=== PATIENT | female | born 1950 | race Caucasian/White ===

== ENCOUNTER 2019-08-16 15:12 | Outpatient (CLI) | payer MEDICARE, SELFPAY ==
[2019-08-16 15:45] LABS: Basophils Absolute Auto 0.1 K/mm3 (0.0-0.1); Basophils Percent Auto 0.9 % (0.2-1.2); Eosinophils Absolute Auto 0.3 K/mm3 (0-0.3); Eosinophils Percent Auto 5.8 % (0-4.4); Hematocrit 28.1 % (37.0-47.0); Hemoglobin 8.4 g/dL (12.0-15.0); Immature Granulocyte Absolute 0.04 K/mm3 (0.00-0.031); Immature Granulocyte Percent A 0.7 % (0-0.5); Immature Reticulocyte Fraction 20.3 % (3.0-15.9); Lymphocytes Absolute Auto 0.38 K/mm3 (0.9-3.2); Lymphocytes Percent Auto 6.5 % (18.3-44.2); Mean Corpuscular HGB Conc 29.9 g/dl (32-36); Mean Corpuscular Hemoglobin 26.3 pg (26-34); Mean Corpuscular Volume 88.1 fl (80-100); Mean Platelet Volume 9.4 fl (7.4-10.4); Monocytes Absolute Auto 0.7 K/mm3 (0.1-0.6); Monocytes Percent Auto 11.9 % (2.6-8.5); Neutrophils Absolute Auto 4.4 K/mm3 (1.3-6.7); Neutrophils Percent Auto 74.2 % (45.5-73.1); Platelet Count Result 159 k/mm3 (150-375); Red Blood Count 3.19 M/mm3 (4.2-5.4); Red Cell Distribution Width 15.2 % (11.5-14.5); Reticulocyte Hemoglobin Conten 27.2 pg (28.2-35.7); Reticulocyte Percent 3.62 % (0.7-4.3); Reticulocytes Absolute 0.12 B/L (32.2-175.7); White Blood Count 5.9 K/mm3 (4.5-10.0)
[2019-08-16 15:47] LABS: Hypochromasia 1+ (NORMAL); Platelet Estimate Adequate (Adequate)
[2019-08-16 16:46] LABS: Iron 41 ug/dL (37-170)
[2019-08-16 16:50] LABS: Alanine Aminotransferase 11 U/L (4-35); Albumin Level 3.4 g/dL (3.5-5.1); Alkaline Phosphatase 124 U/L (38-126); Aspartate Amino Transferase 20 U/L (14-36); Bilirubin,Total 0.4 mg/dL (0.2-1.3); Blood Urea Nitrogen 44 mg/dL (7-17); Calcium 8.9 mg/dL (8.4-10.2); Carbon Dioxide 25 mmol/L (22-30); Chloride 96 mmol/L (98-107); Estimated Glomerular Filt Rate 55; Glucose 270 mg/dL (65-105); Lactate Dehydrogenase 491 U/L (313-618); Potassium 4.8 mmol/L (3.4-5.0); Sodium 137 mmol/L (137-145)
[2019-08-16 16:55] LABS: Percent Iron Saturation 13 % (20-50)
[2019-08-16 17:55] LABS: Folic Acid 15.8 ng/mL (2.76->20)
[2019-08-19 14:14] LABS: Methylmalonic Acid 721 nmol/L (87-318)
== END 2019-08-16 15:13 | disposition home or self-care (01) ==
PROVIDERS: PCP Family Medicine; Visit Provider Internal Medicine Hematology & Oncology
DX: D64.9 Anemia, unspecified (principal)
CPT/HCPCS: 36415; 80053; 82607; 82728; 82746; 83540; 83550; 83615; 83921; 84443; 85025; 85046

== ENCOUNTER 2019-12-21 05:40 | Day surgery (SDC) | payer MEDICARE, SELFPAY ==
[2019-12-20 15:21] VITALS: BMI 36.6
--- NOTE | ~2019-12-21 | BM_ITS ---
EXAMINATION: CCL bone marrow asp w bx diag ORDER COMPLETED DATE: 12/21/2019 17:30 INDICATION: Anemia TECHNIQUE: A time-out was performed to verify the patient's name, date of , and procedure to b e performed. The procedure including the risks and benefits was discussed with the patient. Risks dis cussed included bleeding, infection, nerve injury and allergic reaction. The patient understood the r isks and agreed to proceed. The skin overlying the right posterior iliac spine was prepped and draped in usual sterile fashion. Anesthetic was administered with 1% lidocaine subcutaneously. Moderate co nscious sedation was achieved with 100 mcg fentanyl IV. An 11 gauge needle was inserted into the iliu m with fluoroscopic guidance. Bone marrow was aspirated. An 8 gauge needle was then inserted into the ilium with fluoroscopic guidance. A core bone marrow biopsy was obtained. The needle was removed and the entry site was cleaned and dressed. There were no immediate complications. 29 fluoroscopic imag es were recorded. Fluoroscopy exposure time was 0.1 minutes. FINDINGS: Real-time fluoroscopy demonstrates the biopsy needle tip overlying the right posterior bari c spine. IMPRESSION: 1. Successful fluoroscopic guided bone marrow aspiration. 2. Successful fluoroscopic guided bone marrow biopsy. Reviewed, dictated and finalized at location A.
[2019-12-21 08:26] LABS: Hematocrit 23.9 % (37.0-47.0); Mean Corpuscular HGB Conc 28.5 g/dl (32-36); Mean Corpuscular Hemoglobin 25.3 pg (26-34); Mean Corpuscular Volume 88.8 fl (80-100); Mean Platelet Volume 9.8 fl (7.4-10.4); Platelet Count Result 134 k/mm3 (150-375); Red Blood Count 2.69 M/mm3 (4.2-5.4); Red Cell Distribution Width 17.1 % (11.5-14.5); White Blood Count 5.3 K/mm3 (4.5-10.0)
[2019-12-21 08:29] LABS: Hemoglobin 6.8 g/dL (12.0-15.0)
[2019-12-21 08:30] VITALS: BP 162/82; PULSE 113; RESP 16; TEMP 37; O2SAT 97
[2019-12-21 09:16] LABS: Band Neutrophils Percent 1 % (0-6); Eosinophils Absolute Manual 0.05 K/mm3 (0.02-0.5); Eosinophils Percent Manual 1 % (0-4); Lymphocytes Absolute Manual 0.26 K/mm3 (1.1-4.5); Monocytes Absolute Manual 0.15 K/mm3 (0.1-0.90); Monocytes Percent Manual 3 % (3-9); Neutrophils Absolute Manual 4.82 K/mm3 (1.7-7.2); Neutrophils Percent Manual 90 % (46-73); Total Cells Counted 100
[2019-12-21 09:17] LABS: Hypochromasia 2+ (NORMAL)
[2019-12-21 10:03] VITALS: BP 112/94; PULSE 113; RESP 18; O2SAT 100
[2019-12-21 10:15] VITALS: BP 133/91; PULSE 113; RESP 23; O2SAT 99
[2019-12-21 10:30] VITALS: BP 126/89; PULSE 114; RESP 20; O2SAT 98
[2019-12-21 10:45] VITALS: BP 144/86; PULSE 114; RESP 19; O2SAT 97
[2019-12-21 11:00] VITALS: BP 145/79; PULSE 114; RESP 21; O2SAT 98
== END 2019-12-21 12:10 | disposition home or self-care (01) ==
PROVIDERS: Pathology Anatomic Pathology & Clinical Pathology; Visit Provider Radiology Diagnostic Radiology
DX: D64.9 Anemia, unspecified (principal); E11.9 Type 2 diabetes mellitus without complications; Z79.4 Long term (current) use of insulin; Z86.73 Personal history of transient ischemic attack (TIA), and cerebral infarction without residual deficits; Z79.02 Long term (current) use of antithrombotics/antiplatelets; Z79.82 Long term (current) use of aspirin
CPT/HCPCS: 36415; 38222; 85025; 85027; 88184; 88185; 88305; 88311; 88313; 88360; J2250; J3010; J7040

== ENCOUNTER 2020-01-23 20:50 | Inpatient (IN) | payer MEDICARE, SELFPAY ==
--- NOTE | ~2020-01-23 | XR_ITS ---
EXAMINATION: XR chest 1V portable DATE: 01/23/2020 21:16 INDICATION: Altered mental status. TECHNIQUE: A single frontal view of the chest was obtained. COMPARISON: Chest single view 08/17/2017, chest CT 09/18/2015 FINDINGS: The patient is rotated to her left. There are small pleural effusions. There are airspace o pacities in all right lung zones with a perihilar predominance. There are airspace opacities in left mid and lower lung zones. No pneumothorax. Cardiomegaly is noted. There is instrumentation of left hu merus. IMPRESSION: 1. Diffuse lung disease, consistent with pulmonary edema versus pneumonia. 2. Small pleural effusions. 3. Cardiomegaly. Reviewed, dictated and finalized at location A.
[2020-01-23 20:50] VITALS: BP 139/83; PULSE 91; RESP 17; TEMP 36.3; O2SAT 100
--- NOTE | 2020-01-23 20:59 | PC.NURSE ---
pt daughter requesting pt to have multiple visitors back in room at this time. rn explained to family that pt is only allowed one visitor for entire stay at this time per new visitor policy. daughter very upset with this answer, daughter continues to yell in triage at rn and other family member. weigh and charge worker alec called to talk to family at this time.
--- NOTE | 2020-01-23 21:06 | ED.GENADULT ---
HPI - General Adult General Chief complaint: Weakness Stated complaint: ams Time Seen by Provider: 01/23/20 20:57 History of Present Illness HPI narrative: Patient is a 69-year-old female who presents ER with unresponsiveness. Patient was found unresponsive at her home so EMS not to check on her. She is chronically O2 dependent with nasal cannula oxygen on. EMS reports that she had a normal Accu-Chek and had a brief moment of lucidity while in the ambulance. History is otherwise limited. Related Data Home Medications Medication Instructions Recorded Confirmed atorvastatin 10 mg PO DAILY 05/07/19 01/24/20 escitalopram oxalate [Lexapro] 20 mg PO DAILY 05/07/19 01/24/20 [id number] 150 ml PO DAILY 05/07/19 01/24/20 [Iro-Plex (iron polysaccharide)] sucralfate 1 g PO TID 05/07/19 01/24/20 aspirin 81 mg PO DAILY 12/21/19 01/24/20 buspirone 10 mg PO TID 12/21/19 01/24/20 clopidogrel [Plavix] 75 mg PO DAILY 12/21/19 01/24/20 cyanocobalamin (vitamin B-12) 1,000 mcg PO DAILY 12/21/19 01/24/20 [Vitamin B-12] hydralazine 15 mg PO TID 12/21/19 01/24/20 insulin glargine [Basaglar KwikPen 20 unit SUBCUT BID 12/21/19 01/24/20 U-100 Insulin] levothyroxine 100 mcg PO DAILY 12/21/19 01/24/20 sacubitril-valsartan [Entresto] 1 tablet PO BID 12/21/19 01/24/20 torsemide 10 mg PO QPM 12/21/19 01/24/20 torsemide 20 mg PO QAM 12/21/19 01/24/20 hydrocodone-acetaminophen 1 tablet PO Q6H PRN 01/24/20 01/24/20 insulin aspart U-100 [Novolog 1 sliding scale dose SUBCUT 01/24/20 01/24/20 U-100 Insulin aspart] USEASDIRECTD metoprolol tartrate 50 mg PO Q12H 01/24/20 01/24/20 potassium chloride 20 meq PO DAILY 01/24/20 01/24/20 torsemide 10 mg PO QNOON 01/24/20 01/24/20 Allergies Allergy/AdvReac Type Severity Reaction Status Date / Time amoxicillin Allergy Unknown Verified 06/03/15 16:55 cephalexin Allergy Unknown Verified 05/17/18 14:45 Cephalosporins Allergy Unknown Verified 06/03/15 16:55 epinephrine Allergy Unknown Verified 05/17/18 14:45 levofloxacin Allergy Unknown Verified 05/17/18 14:45 metronidazole Allergy Unknown Verified 06/03/15 16:55 nitrofurantoin Allergy Unknown Verified 06/03/15 16:55 sulfanilamide Allergy Unknown Verified 06/03/15 16:56 CEPHALEXIN MONOHYDRATE Allergy Mild Uncoded 08/17/17 17:31 POTASSIUM CLAVULANATE Allergy Mild Uncoded 08/17/17 17:31 Review of Systems Review of Systems: ROS unobtainable: Yes unobtainable due to medical condition PMFSH Social History Social History Smoking status: Never smoker Second hand tobacco smoke exposure: No Alcohol intake: never Substance use: never Gender identity (if verbalized by the patient): Female Spiritual care concerns: No Exam Narrative: Exam Narrative: GENERAL: Ill-appearing, well-nourished, and in no acute distress. HEAD: Normocephalic, atraumatic. ENT: Mucous membranes moist. CHEST: Clear to auscultation. No respiratory distress. HEART: Regular rate and rhythm. Normal peripheral pulses. ABDOMEN: Soft, nontender, nondistended. EXTREMITIES: Normal range of motion. 1+ edema. SKIN: Warm, dry, bruising to mid abdomen likely from subcutaneous heparin injections. NEURO: Wakes with light sternal rub, can tell me her name but no other information. Moves all extremities. PSYCH: Normal mood and affect. Course Course Emergency Course: Patient responding well to BiPAP. Lasix for diuresis. Vital Signs Vital signs: Vital Signs Temperature 97.4 F L 01/23/20 20:50 Pulse Rate 91 01/23/20 20:50 Respiratory Rate 17 01/23/20 20:50 Blood Pressure 139/83 01/23/20 20:50 Pulse Oximetry 100 01/23/20 20:50 Temperature 98.4 F 01/24/20 04:00 Pulse Rate 92 01/24/20 06:00 Respiratory Rate 20 01/24/20 04:00 Blood Pressure 106/82 01/24/20 04:00 Pulse Oximetry 100 01/24/20 04:00 Medical Decision Making Vital Signs Vital Signs: Vital Signs Temperature 97.4 F L 01/23/20 20:50 Pulse Rate 91 01/23/20 20
[2020-01-23 21:18] LABS: Basophils Percent Auto 0.5 % (0.2-1.2); Eosinophils Absolute Auto 0.2 K/mm3 (0-0.3); Eosinophils Percent Auto 2.8 % (0-4.4); Hematocrit 25.3 % (37.0-47.0); Hemoglobin 7.1 g/dL (12.0-15.0); Immature Granulocyte Absolute 0.02 K/mm3 (0.00-0.031); Immature Granulocyte Percent A 0.3 % (0-0.5); Lymphocytes Absolute Auto 0.33 K/mm3 (0.9-3.2); Lymphocytes Percent Auto 5.2 % (18.3-44.2); Mean Corpuscular HGB Conc 28.1 g/dl (32-36); Mean Corpuscular Hemoglobin 25.1 pg (26-34); Mean Corpuscular Volume 89.4 fl (80-100); Monocytes Absolute Auto 0.8 K/mm3 (0.1-0.6); Neutrophils Percent Auto 79.2 % (45.5-73.1); Platelet Count Result 135 k/mm3 (150-375); Red Blood Count 2.83 M/mm3 (4.2-5.4); Red Cell Distribution Width 17.3 % (11.5-14.5); White Blood Count 6.4 K/mm3 (4.5-10.0)
[2020-01-23 21:21] VITALS: PULSE 89
[2020-01-23 21:30] LABS: Lactic Acid Reflex 1.7 mmol/L (0.7-2.1)
[2020-01-23 21:43] LABS: Anisocytosis 2+ (NORMAL); Hypochromasia 1+ (NORMAL); Platelet Estimate Decreased (Adequate)
[2020-01-23 21:55] LABS: Base Excess ABG 5.8 mEq/l (+/-2.0); Carboxyhemoglobin 1.6 % THb (0-2.0); Fractional Inspired Oxygen 100 %; HCO3 ABG 33.1 mEq/l (22.0-26.0); Methemoglobin ABG 0.4 %THb (0-1.5); Oxyhemoglobin 97.4 % THb (90.0-100.0); Reduced Hemoglobin 0.6 %THb (0-5.0); pH ABG 7.301 (7.350-7.450)
[2020-01-23 21:56] LABS: Oxygen Saturation ABG 97.9 % (95.0-100.0); PCO2 ABG 68.7 mmHg (35.0-45.0); Total Hemoglobin 7.5 g/dL (12.0-18.0)
[2020-01-23 21:57] LABS: Device NON-REBREATHER MASK; Site Drawn RIGHT BRACHIAL
--- NOTE | 2020-01-23 21:59 | PCRCNOTE ---
ABG RESULTS DELAYED DUE TO RN CARE OF PT AND OTHER TESTING.
[2020-01-23 22:04] VITALS: PULSE 87; RESP 20; O2SAT 97
[2020-01-23 22:15] LABS: INR 1.4; Prothrombin Time 16.4 Seconds (11.1-14.7)
[2020-01-23 22:25] LABS: Blood Urea Nitrogen 78 mg/dL (7-17); Carbon Dioxide 34 mmol/L (22-30); Chloride 100 mmol/L (98-107); Estimated CRCL calculation 35 ml/min; Estimated Glomerular Filt Rate 32; Glucose 120 mg/dL (65-105); Potassium 4.8 mmol/L (3.4-5.0); Sodium 138 mmol/L (137-145)
[2020-01-23 22:26] LABS: NT Pro B Type Natriuretic Pept 7610 PG/ML (5-100)
--- NOTE | 2020-01-23 22:39 | PC.NURSE ---
Pt has areas of reddened, weeping moisture related skin breakdown in her panus and groin.
[2020-01-23 22:41] VITALS: BP 124/67; PULSE 85; RESP 24; O2SAT 100
[2020-01-23 23:14] LABS: Add Urine Microscopic? YES; Appearance Urine Clear (Clear); Bacteria Urine Trace /hpf; Bilirubin Urine Negative (Negative); Blood Urine Negative (Negative); Color Urine Yellow (Yellow); Glucose Urine UA Negative (Negative); Hyaline Casts Urine 30-49 /lpf; Ketones Urine Negative (Negative); Leukocyte Esterase Ur Negative LEU/UL (Negative); Mucus Urine Rare /lpf; Nitrate Urine Negative (Negative); Protein Urine 1+ mg/dL (Negative); Specific Grav Ur 1.017 (1.001-1.035); Urobilinogen Urine Negative mg/dL (<2.0)
[2020-01-23 23:23] VITALS: BP 119/67; PULSE 86; RESP 19; O2SAT 94
--- NOTE | 2020-01-23 23:32 | PC.NURSE ---
report taken from adrian hernandez at this time.
[2020-01-23] MEDS: FUROSEMIDE INJ 40 MG/4 ML VIAL IV PUSH (23:46)
[2020-01-24] VITALS (26 sets, daily range): BP systolic 98–128; BP diastolic 46–84; PULSE 75–111; RESP 16–22; TEMP 36.1–36.9; O2SAT 97–100; BMI 47.2; BMI 47.0
--- NOTE | 2020-01-24 | ECHO_ITS ---
Patient Info Name: Regi Khan Age: 69 years : 1950 Gender: Female Ht: 62 in Wt: 257 lbs BSA: 2.33 m2 HR: 92 bpm BP: 106 / 82 mmHg Heart Rhythm: Indeterminant Technical Quality: Good Exam Date: 01/24/2020 11:15 AM Exam Location: [facility] Pulmonary Exam Room: 203 Patient Status: Inpatient Admit Date: 01/24/2020 Staff Ordering Physician: Izabella Heredia DO Staff Software Engineer: Stefanie Sandoval RDCS Attending Provider: Nic Banks PA-C Referring Physician: Giovanna SIMON; Exam Type: CA echo doppler color flow Study Info Indications - RESP FAILURE EDEMA Complete two-dimensional, color flow and Doppler transthoracic echocardiogram is performed. Summary 1. Left ventricular chamber size, and systolic are normal with no regional wall motion abnormalities with an estimated ejection fraction of 60-65%. There is grade 1 diastolic dysfunction noted. Mild concentric left ventricular hypertrophy is present. 2. Right ventricular chamber dimension is severely enlarged with a moderate reduction of systolic function. There is flattening of the interventricular septum during diastole consistent with volume overload. 3. Left atrial chamber dimension is moderately enlarged. 4. Right atrial chamber dimension is severely enlarged. 5. The mitral valve has thickened leaflets with mild regurgitation. 6. There is severe tricuspid valve regurgitation. 7. Moderate pulmonary hypertension, estimated pulmonary arterial systolic pressure is 57 mmHg. 8. Moderate left pleural effusion. 9. Dilated inferior vena cava with <50% collapse upon inspiration consistent with Empty right atrial pressure, 10 mmHg. Left Ventricle Left ventricular chamber dimension is normal. Left ventricular systolic function is normal, estimated at 60-65%. There is no increased left ventricular wall thickness. Left ventricular septal wall motion is normal. The left ventricular diastolic function is grade I diastolic dysfunction. Left ventricular chamber size, and systolic are normal with no regional wall motion abnormalities with an estimated ejection fraction of 60-65%. There is grade 1 diastolic dysfunction noted. Mild concentric left ventricular hypertrophy is present. Left ventricular Empty are normal with no regional wall motion abnormalities with an estimated ejection fraction of Empty. Right Ventricle Right ventricular chamber dimension is severely enlarged with a moderate reduction of systolic function. There is flattening of the interventricular septum during diastole consistent with volume overload. Right ventricular systolic function is reduced. Left Atria Left atrial chamber dimension is moderately enlarged. Right Atria Right atrial chamber dimension is severely enlarged. Aortic Valve The aortic valve is trileaflet. There is no aortic valve sclerosis. There is no aortic valve stenosis. There is no aortic valve regurgitation. There is mild aortic valve calcification. Pulmonic Valve The pulmonic valve is normal. There is no pulmonic valve stenosis. There is no pulmonic regurgitation. Mitral Valve The mitral valve has thickened leaflets with mild regurgitation. There is no mitral valve stenosis. There is mild mitral valve regurgitation. There is moderate mitral valve calcification. Tricuspid Valve The tricuspid valve leaflets are normal. There is no significant tricuspid valve stenosis. There is severe tricuspid valve regurgitation. Moderate pulmonary hypertension, estimated pulmonary arterial s
--- NOTE | 2020-01-24 01:30 | ADMGEN ---
This patient, Regi Khan, was admitted to IMU Room 203-01. Patient/family oriented to hospital policies and general routines including ID bracelet, bed and alarms, visiting hours, pain management, procedures, bathroom and other care routines, personal items, smoking policy, room service/diet, and visiting hours. Valuables list has been completed. Information on how to activate the Rapid Response Team has been discussed. Patient/Family are encouraged to report perceived risks to care and to ask questions if they do not understand what they are told or what they should do. 0100 01/24/20
[2020-01-24 05:01] LABS: Alveolar/Arterial O2 Gradient 74.5 mmHg; Base Excess ABG 4.4 mEq/l (+/-2.0); Carboxyhemoglobin 0.8 % THb (0-2.0); Fractional Inspired Oxygen 32 %; HCO3 ABG 27.9 mEq/l (22.0-26.0); Methemoglobin ABG 0.3 %THb (0-1.5); Oxygen Content ABG 10.3 %vol (16.0-22.0); Oxygen Saturation ABG 98.4 % (95.0-100.0); Oxyhemoglobin 96.9 % THb (90.0-100.0); PCO2 ABG 36.4 mmHg (35.0-45.0); PO2 ABG 111.1 mmHg (80.0-100.0); PO2 FiO2 Ratio Arterial Blood 3.47 %; pH ABG 7.502 (7.350-7.450)
[2020-01-24 05:04] LABS: Device NON-INVASIVE VENT; Modified Allen's Test Pass; Site Drawn RIGHT RADIAL; Total Hemoglobin 7.4 g/dL (12.0-18.0)
[2020-01-24 05:05] LABS: Non-Invasive Expiratory Pressure 8 CMH2O; Non-Invasive Inspiratory Pressure 16 CMH2O; Non-Invasive Vent Rate 10 /MIN
[2020-01-24] MEDS: FUROSEMIDE INJ 40 MG/4 ML VIAL IV PUSH ×2 (05:23→18:16)
[2020-01-24 05:34] LABS: Mean Corpuscular HGB Conc 27.8 g/dl (32-36); Mean Corpuscular Hemoglobin 24.4 pg (26-34); Mean Corpuscular Volume 87.8 fl (80-100); Platelet Count Result 114 k/mm3 (150-375); Red Blood Count 2.62 M/mm3 (4.2-5.4); White Blood Count 6.6 K/mm3 (4.5-10.0)
[2020-01-24 05:40] LABS: Hemoglobin 6.4 g/dL (12.0-15.0)
[2020-01-24 05:46] LABS: Blood Urea Nitrogen 77 mg/dL (7-17); Calcium 8.3 mg/dL (8.4-10.2); Carbon Dioxide 34 mmol/L (22-30); Chloride 98 mmol/L (98-107); Estimated CRCL calculation 33 ml/min; Estimated Glomerular Filt Rate 30; Glucose 80 mg/dL (65-105); Potassium 4.9 mmol/L (3.4-5.0); Sodium 137 mmol/L (137-145)
--- NOTE | 2020-01-24 06:52 | PM.IMHP ---
H&P: HPI History of Present Illness Chief complaint: Unresponsive Narrative: Date and time of patient contact: 01/24/2020 at 6:00 a.m. Regi Khan is a 69 year old female with a past medical history diastolic dysfunction, hypertension, myelodysplastic syndrome, type 2 diabetes mellitus, morbid obesity, chronic hypoxic respiratory failure and multiple strokes who presented to the ER when she was found unresponsive by her . The patient is only a fair to poor historian. She does not know why she was brought into the ER. She stated that she must of been short of breath. However when I asked if the patient had been feeling ill or having increased shortness of breath prior to coming to the ER she denied the symptoms. She does report chronic knee and leg pain in his requesting narcotic medications. She denies any chest pain. She is on chronic home O2 of 5 L at home. She has not been having any cough or congestion. 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 She has functional quadriplegia in her has to lift her with a Maame lift to get her from bed to wheelchair. He is responsible for her bathing and daily care. They have a home health aide that comes in twice a day to make the meals. Patient denies any nausea or vomiting. She has not had any fevers or chills. She has terrible rashes in her folds that her painful. When EMS arrived at the patient's home she had a normal Accu-Chek. She had a brief period of lucidity while in the ambulance. When the patient arrived to the ER she was minimally responsive. ABG at that time demonstrated hypercapnic respiratory failure. The patient was placed on BiPAP. The reportedly by the time the patient arrived to the IMU she was awake and conversant. At the time of my interview the patient has difficulty answering a lot of questions. She can't tell me the year but does not know the month. She knows her age and date of . She cannot name the president. When asked specific questions regarding her health history she can only provide limited answers. Source of information: The majority of the history was provided from past medical history. Patient is poor historian. Review of Systems Review of Systems: Narrative: 12 systems were reviewed with pertinent positives and negatives per HPI. Except as documented in the HPI, all other systems were reviewed and are negative. [facility]LY [facility] Past Medical History Medical History (Updated 01/24/20 @ 09:48 by Izabella Heredia DO) Chronic pain syndrome Chronic respiratory failure with hypoxia, on home O2 therapy CVA (cerebral vascular accident) Right occipital stroke with mild left-sided weakness and peripheral vision loss Diabetes mellitus Diabetic gastroparesis Essential hypertension Functional quadriplegia GERD (gastroesophageal reflux disease) Hyperlipidemia MDS (myelodysplastic syndrome), low grade Noted on bone marrow biopsy December 2019 Morbid obesity Peripheral neuropathy Surgical History Surgical History (Updated 01/24/20 @ 09:22 by Izabella Heredia DO) Ankle fracture, right With ORIF H/O hysterectomy for benign disease Dysfunctional uterine bleeding History of appendectomy History of bilateral cataract extraction History of inguinal hernia repair, bilateral History of left breast biopsy With benign pathology History of partial thyroidectomy Due to cyst History of shoulder surgery Left shoulder ORIF Hx of cholecystectomy Family History Family History (Updated 01/24/20 @ 09:28 by Izabella Heredia DO) Sibling Multiple sclerosis Sister Father Diabetes mellitus Hyperlipidemia Malignant neoplasm of prostate Heart disease Acute myocardial infarction Mother Diabetes mellitus Emphysema lung Social History Social History (Updated 01/24/20 @ 09:29 by Izabella Heredia DO) Smoking status: Never smoker Second hand tobacco smoke exposure: No Alcohol intake: never Substance use: never Living [facility]
[2020-01-24] MEDS: SUCRALFATE 1 GM TABLET PO ×3 (09:52→18:14)
[2020-01-24] MEDS: ATORVASTATIN 10 MG TABLET PO (09:52)
[2020-01-24] MEDS: ASPIRIN 81 MG CHEWABLE TABLET PO (09:53)
[2020-01-24] MEDS: CYANOCOBALAMIN 1,000 MCG TABLET 1000 MCG PO (09:53)
[2020-01-24] MEDS: METOPROLOL TARTRATE 50 MG TAB PO ×2 (09:53→21:38)
[2020-01-24] MEDS: POTASSIUM CHLORIDE 20 MEQ TABLET.ER PO (09:53)
[2020-01-24] MEDS: ESCITALOPRAM OXALATE 10 MG TABLET 20 MG PO (09:54)
[2020-01-24] MEDS: busPIRone HCL 10 MG TABLET PO ×3 (09:54→18:14)
[2020-01-24] MEDS: CLOPIDOGREL BISULFATE 75 MG TABLET PO (09:55)
[2020-01-24] MEDS: LEVOTHYROXINE SODIUM 100 MCG TABLET PO (10:03)
[2020-01-24 10:09] LABS: Glucose Point of Care 159 (65-105)
[2020-01-24 13:55] LABS: Glucose Point of Care 142 (65-105)
[2020-01-24] MEDS: TUBING, BLOOD PLUM PUMP TUBING 1 EACH XX (15:10)
[2020-01-24] MEDS: SODIUM CHLORIDE 0.9% IV 250 ML 30 ML IV CONT (15:10)
[2020-01-24] MEDS: ACETAMINOPHEN 325 MG TABLET 650 MG PO (15:16)
[2020-01-24 15:53] LABS: Hematocrit 25.8 % (37.0-47.0); Hemoglobin 7.6 g/dL (12.0-15.0)
--- NOTE | 2020-01-24 17:34 | P.PNIM_ITS ---
Progress Note: A&P Assessment and Plan (1) Acute hypercapnic respiratory failure: Code(s): J96.02 - Acute respiratory failure with hypercapnia Status: Acute Assessment and Plan: Suspicion this is due to a combination of obesity hypoventilation syndrome and narcotic use. Patient appears to have significantly improved today; A&O x4 and on her home 5L. agrees she has improved. * Apnea link has been ordered. * Pulmonology consulted in regards to recommendations for BiPAP as outpatient; appreciate recommendations. Suspect the patient is going at difficulty arranging or participating in a outpatient sleep study due to her mobility concerns. * Consider repeat ABG in AM * Monitor respiratory status (2) Acute exacerbation of CHF (congestive heart failure): Code(s): I50.9 - Heart failure, unspecified Status: Acute Assessment and Plan: Echo pending * Continue IV Lasix b.i.d. for now hold the patient's home diuretics. * Monitor strict input and output and daily weights. * Consider resuming home meds tomorrow (3) MDS (myelodysplastic syndrome), low grade: Code(s): D46.20 - Refractory anemia with excess of blasts, unspecified Status: Acute Assessment and Plan: 1 unit pRBC transfused today; Hgb up to 7.6 this afternoon. * Dr. Quevedo has been consulted for further input. Patient has what sounds like epogen injection arranged for tomorrow according to * Await further rec from Heme/Onc (4) Acute renal failure: Code(s): N17.9 - Acute kidney failure, unspecified Status: Acute Assessment and Plan: Possibly due to prerenal cause with decreased perfusion with low cardiac output versus decreased intervascular volume. * Will continue trial of IV diuretics. If BUN creatinine did not improve or precipitously worsen will consider a consult to nephrology. * Given significantly elevated BUN will obtain Hemoccult stool to rule out GI blood loss given the patient's concomitant anemia, although patient does not report any rectal bleeding or melena * Monitor (5) Chronic narcotic dependence: Code(s): F11.20 - Opioid dependence, uncomplicated Status: Acute Assessment and Plan: * Continue with decreased amount of [place] at 5/325 as her pain is well controlled; narcotics possibly contributing to hypercapnic respiratory failure. (6) Candidiasis of other urogenital sites: Code(s): B37.49 - Other urogenital candidiasis Status: Acute Assessment and Plan: * Wound care consult. * Given the patient's skin condition I am concerned that the patient and her cannot handle her care at home, however patient and both state she wishes to go home after discharge and are not interested in rehab at this time * Tolnaftate powder ordered for skin folds as well (7) Diabetes mellitus: Code(s): E11.9 - Type 2 diabetes mellitus without complications Status: Acute Assessment and Plan: BGL 100s today. on Basaglar 20 u BID at home and SSI * Obtain A1c * Will do glargine 20 u QHS during stay * Accuchecks ACHS, hypoglycemia protocol, correctional insulin, diabetic diet * Monitor closely (8) Essential hypertension: Code(s): I10 - Essential (primary) hypertension Status: Acute Assessment and Plan
--- NOTE | 2020-01-24 17:34 | PM.IMPN ---
Progress Note: A&P Assessment and Plan (1) Acute hypercapnic respiratory failure: Code(s): J96.02 - Acute respiratory failure with hypercapnia Status: Acute Assessment and Plan: Suspicion this is due to a combination of obesity hypoventilation syndrome and narcotic use. Patient appears to have significantly improved today; A&O x4 and on her home 5L. agrees she has improved. Apnea link has been ordered. Pulmonology consulted in regards to recommendations for BiPAP as outpatient; appreciate recommendations. Suspect the patient is going at difficulty arranging or participating in a outpatient sleep study due to her mobility concerns. Consider repeat ABG in AM Monitor respiratory status (2) Acute exacerbation of CHF (congestive heart failure): Code(s): I50.9 - Heart failure, unspecified Status: Acute Assessment and Plan: Echo pending Continue IV Lasix b.i.d. for now hold the patient's home diuretics. Monitor strict input and output and daily weights. Consider resuming home meds tomorrow (3) MDS (myelodysplastic syndrome), low grade: Code(s): D46.20 - Refractory anemia with excess of blasts, unspecified Status: Acute Assessment and Plan: 1 unit pRBC transfused today; Hgb up to 7.[address] Quevedo has been consulted for further input. Patient has what sounds like epogen injection arranged for tomorrow according to Await further rec from Heme/Onc (4) Acute renal failure: Code(s): N17.9 - Acute kidney failure, unspecified Status: Acute Assessment and Plan: Possibly due to prerenal cause with decreased perfusion with low cardiac output versus decreased intervascular volume. Will continue trial of IV diuretics. If BUN creatinine did not improve or precipitously worsen will consider a consult to nephrology. Given significantly elevated BUN will obtain Hemoccult stool to rule out GI blood loss given the patient's concomitant anemia, although patient does not report any rectal bleeding or melena Monitor (5) Chronic narcotic dependence: Code(s): F11.20 - Opioid dependence, uncomplicated Status: Acute Assessment and Plan: Continue with decreased amount of [place] at 5/325 as her pain is well controlled; narcotics possibly contributing to hypercapnic respiratory failure. (6) Candidiasis of other urogenital sites: Code(s): B37.49 - Other urogenital candidiasis Status: Acute Assessment and Plan: Wound care consult. Given the patient's skin condition I am concerned that the patient and her cannot handle her care at home, however patient and both state she wishes to go home after discharge and are not interested in rehab at this time Tolnaftate powder ordered for skin folds as well (7) Diabetes mellitus: Code(s): E11.9 - Type 2 diabetes mellitus without complications Status: Acute Assessment and Plan: BGL 100s today. on Basaglar 20 u BID at home and SSI Obtain A1c Will do glargine 20 u QHS during stay Accuchecks ACHS, hypoglycemia protocol, correctional insulin, diabetic diet Monitor closely (8) Essential hypertension: Code(s): I10 - Essential (primary) hypertension Status: Acute Assessment and Plan: BP is a bit soft in 110s sys this afternoon Monitor closely with diuresis Continue metoprolol Entresto held at this time Subjective Date/time seen: 01/24/20 17:34 Interval history: Patient is a 69 yo F with a history of diastolic dysfunction, hypertension, myelodysplastic syndrome, type 2 diabetes mellitus, morbid obesity, chronic hypoxic respir
--- NOTE | 2020-01-24 19:22 | PM.CNPUL ---
History of Present Illness History of Present Illness Consult date: 01/24/20 Chief complaint: Unresponsive [facility] Past Medical History Medical History (Updated 01/24/20 @ 17:53 by Nic Banks PA-C) Chronic pain syndrome Chronic respiratory failure with hypoxia, on home O2 therapy CVA (cerebral vascular accident) Right occipital stroke with mild left-sided weakness and peripheral vision loss Diabetes mellitus Diabetic gastroparesis Essential hypertension Functional quadriplegia GERD (gastroesophageal reflux disease) Hyperlipidemia MDS (myelodysplastic syndrome), low grade Noted on bone marrow biopsy December 2019 Morbid obesity Peripheral neuropathy Surgical History Surgical History (Updated 01/24/20 @ 09:22 by Izabella Heredia DO) Ankle fracture, right With ORIF H/O hysterectomy for benign disease Dysfunctional uterine bleeding History of appendectomy History of bilateral cataract extraction History of inguinal hernia repair, bilateral History of left breast biopsy With benign pathology History of partial thyroidectomy Due to cyst History of shoulder surgery Left shoulder ORIF Hx of cholecystectomy Family History Family History (Updated 01/24/20 @ 09:28 by Izabella Heredia DO) Sibling Multiple sclerosis Sister Father Diabetes mellitus Hyperlipidemia Malignant neoplasm of prostate Heart disease Acute myocardial infarction Mother Diabetes mellitus Emphysema lung Social History Social History (Updated 01/24/20 @ 09:29 by Izabella Heredia DO) Smoking status: Never smoker Second hand tobacco smoke exposure: No Alcohol intake: never Substance use: never Living arrangements: with family Additional living arrangements comments: She lives with her in [place]. Gender identity (if verbalized by the patient): Female Spiritual care concerns: No Meds Home Medications and Allergies Home Medications Medication Instructions Recorded Confirmed Type atorvastatin 10 mg PO DAILY 05/07/19 01/24/20 History escitalopram oxalate [Lexapro] 20 mg PO DAILY 05/07/19 01/24/20 History [id number] 150 ml PO DAILY 05/07/19 01/24/20 History [Iro-Plex (iron polysaccharide)] sucralfate 1 g PO TID 05/07/19 01/24/20 History aspirin 81 mg PO DAILY 12/21/19 01/24/20 History buspirone 10 mg PO TID 12/21/19 01/24/20 History clopidogrel [Plavix] 75 mg PO DAILY 12/21/19 01/24/20 History cyanocobalamin (vitamin B-12) 1,000 mcg PO DAILY 12/21/19 01/24/20 History [Vitamin B-12] hydralazine 15 mg PO TID 12/21/19 01/24/20 History insulin glargine [Basaglar KwikPen 20 unit SUBCUT BID 12/21/19 01/24/20 History U-100 Insulin] levothyroxine 100 mcg PO DAILY 12/21/19 01/24/20 History sacubitril-valsartan [Entresto] 1 tablet PO BID 12/21/19 01/24/20 History torsemide 10 mg PO QPM 12/21/19 01/24/20 History torsemide 20 mg PO QAM 12/21/19 01/24/20 History hydrocodone-acetaminophen 1 tablet PO Q6H PRN 01/24/20 01/24/20 History insulin aspart U-100 [Novolog 1 sliding scale dose SUBCUT 01/24/20 01/24/20 History U-100 Insulin aspart] USEASDIRECTD metoprolol tartrate 50 mg PO Q12H 01/24/20 01/24/20 History potassium chloride 20 meq PO DAILY 01/24/20 01/24/20 History torsemide 10 mg PO QNOON 01/24/20 01/24/20 History Allergies Allergy/AdvReac Type Severity Reaction Status Date / Time amoxicillin Allergy Unknown Verified 06/03/15 16:55 cephalexin Allergy Unknown Verified 05/17/18 14:45 Cephalosporins Allergy Unknown Verified 06/03/15 16:55 epinephrine Allergy Unknown Verified 05/17/18 14:45 levofloxacin Allergy Unknown Verified 05/17/18 14:45 metronidazole Allergy Unknown Verified 06/03/15 16:55 nitrofurantoin Allergy Unknown Verified 06/03/15 16:55 sulfanilamide Allergy Unknown Verified 06/03/15 16:56 CEPHALEXIN MONOHYDRATE Allergy Mild Uncoded 08/17/17 17:31 POTASSIUM CLAVULANATE Allergy Mild Uncoded 08/17/17 17:31 Vital Signs Vital Signs - 24 hr 07
[2020-01-24] MEDS: TOLNAFTATE 1% POWDER 45 GM BTL 1 APPLIC TOPICAL (21:43)
[2020-01-24 21:44] LABS: Glucose Point of Care 125 (65-105)
[2020-01-24] MEDS: INSULIN GLARGINE (*BKC) 100 UNITS/ML 20 UNITS SUB-Q (21:44)
--- NOTE | 2020-01-24 22:43 | PC.NURSE ---
This patient, Regi Khan, was transferred to [facility] on 01/24/20 at 2243. Personal belongings sent with patient. Belongings list checked and signed with receiving. Report given to 3rd floor RN per MICHELLE Atwood. Appropriate documentation sent with patient.
--- NOTE | 2020-01-24 23:41 | PC.NURSE ---
This patient, Regi Khan, was received from [ IMU] on 01/24/20 at 2200. Personal belongings list checked and signed. Patient/family oriented to unit policies and routines
[2020-01-25] VITALS: BP 113/55; PULSE 76; RESP 26; TEMP 36.8; O2SAT 100
[2020-01-25] MEDS: ACETAMINOPHEN 325 MG TABLET 650 MG PO (02:00)
--- NOTE | 2020-01-25 04:04 | PDCODEBLUE ---
Code Blue Note Code Blue Note Time Arrived at Code Mina: 03:29 hrs. Initial Rhythm on Arrival: PEA Airway Management: Initiated bagging pt on arrival Chest Compressions: In process on arrival to bedside Result of Code Blue: Pt Cardiac Rhythm Post Code: Asystole Code Mina Summary: Called to see this 69 year old Obese Diabetic Female with Chronic Respiratory failure among many other comorbidites via rapid response who was admitted 2 days ago for an unresposive event and found to have hypercapnic respiratory failure. A few moments after a rapid response was called, Lisandra mina was called overhead as I was on my way to see the patient. On arrival to bedside, CPR was already being performed by nursing staff. I obtained the AMBU bag and initiated to bag the patient with the current CPR. Our first pulse check demonstrated PEA. The patient was administered 1 amp of Epinephrine IVP and CPR was continued. AT the next pulse check the patient continued to be in PEA and CPR was started again. 1 amp of Sodium Bicarbonate IVP was administered. AT the next pulse check the patient continued to be in PEA and another 1 amp of Epinephrine IVP was given. CPR was initaited again. AT the next pulse check the patient continued to be in PEA and CPR was started again. She was given another 1 amp of sodium bicarbonate IVP. AT the next pulse check the patient was in Asystole. CPR was resumed and she was given another 1 amp of Epinepherine IVP. At the next pulse check the patient was again in asystole and time of was pronounced at 03:41 hrs.
--- NOTE | 2020-01-25 17:32 | PM.DDS ---
Discharge Sum: Prov Provider Primary care physician: [facility] Admitting provider: Izabella Heredia DO Consults: 01/24/20 Consult to Physician Routine Comment: MESSAGE LEFT ON DR. GOLDSTEIN PHONE/OFFICE NOTIFIED Consulting Provider: Daya Goldstein hand hose cutter/MD group to consult: Pulmonology Reason for consultation: Chronic hypoxic respiratory failure, acute hypercapnic respiratory failure Has provider been notified: Yes 01/24/20 14:11 Consult to Physician Routine Comment: OFFICE NOTIFIED Consulting Provider: Rudolph Quevedo hand hose cutter/MD group to consult: Dr. Quevedo Reason for consultation: Myelodysplastic syndrome Has provider been notified: Yes Discharge Sum: Diag Contributing Factors (1) Acute hypercapnic respiratory failure: (2) Acute exacerbation of CHF (congestive heart failure): (3) MDS (myelodysplastic syndrome), low grade: (4) Acute renal failure: (5) Chronic narcotic dependence: (6) Candidiasis of other urogenital sites: (7) Diabetes mellitus: (8) Essential hypertension: Discharge Sum: Summary Date and Time Date of admission: 01/24/20 10:44 Date of : 01/25/20 Time of : 03:41 Summary Details: Patient is a 69 yo F with a history of diastolic dysfunction, hypertension, myelodysplastic syndrome, type 2 diabetes mellitus, morbid obesity, chronic hypoxic respiratory failure (on 5 L O2 at home) and multiple strokes who presented to the ER when she was found unresponsive by her . At arrival to the ED, she was minimally responsive. ABG at that time demonstrated hypercapnic respiratory failure; she was subsequently placed on BiPAP. Patient was also found to anemic with Hgb of 7.1. Patient admitted under this setting. Please see H&P for further details. Presenting VS: Temp Pulse Resp BP Pulse Ox 97.4 F L 91 17 139/83 100 01/23/20 20:50 01/23/20 20:50 01/23/20 20:50 01/23/20 20:50 01/23/20 20:50 Presenting Pertinent labs: H&H 7.1/25.3, MCV 89.4, BUN 78, Cr 1.60. ABG on 15L nonrebreather showed pH of 7.301, pCO2 68.7, HCO3 33.1 total hgb of 7.5. CBC, coag, ABG, chemistry, UA otherwise unremarkable Micro: UCx negative Imaging: Chest X-Ray 01/23/20 21:21 IMPRESSION: 1. Diffuse lung disease, consistent with pulmonary edema versus pneumonia. 2. Small pleural effusions. 3. Cardiomegaly. Echo 01/24/20 Summary 1. Left ventricular chamber size, and systolic are normal with no regional wall motion abnormalities with an estimated ejection fraction of 60-65%. There is grade 1 diastolic dysfunction noted. Mild concentric left ventricular hypertrophy is present. 2. Right ventricular chamber dimension is severely enlarged with a moderate reduction of systolic function. There is flattening of the interventricular septum during diastole consistent with volume overload. 3. Left atrial chamber dimension is moderately enlarged. 4. Right atrial chamber dimension is severely enlarged. 5. The mitral valve has thickened leaflets with mild regurgitation. 6. There is severe tricuspid valve regurgitation. 7. Moderate pulmonary hypertension, estimated pulmonary arterial systolic pressure is 57 mmHg. 8. Moderate left pleural effusion. 9. Dilated inferior vena cava with <50% collapse upon inspiration consistent with Empty right atrial pressure, 10 mmHg. ECG: none Patient was admitted to the hospitalist service for further evaluation and treatment of acute hypercapneic respiratory failure; Dr. Goldstein (Pulmonology) was consulted for further input on recommendations for BiPAP as an outpatient. As above, patient was placed on BiPAP in the ED and by the time she presented to the floor, she was more responsive. It was felt that it may be due to OHS vs chronic narcotic use or combination of the two. Echocardiogram was obtained and showed severely enlarged right ventricle chamber dimension with moderate reduction of systolic function, severely enlarged right atrial chamb
--- NOTE | 2020-02-15 14:26 | WPDONCPN ---
Progress Note: A/P - Time Spent With Patient Total time spent is greater than 50% in coordination of care (as documented) at patient's floor/unit and/or counseling patient: less than 15 minutes (Patient before being seen) Subjective Interval history: Patient before being seen Exam Vital signs: Temp Pulse Resp BP Pulse Ox 36.8 C 76 26 H 113/55 L 100 01/25/20 00:00 01/25/20 00:00 01/25/20 00:00 01/25/20 00:00 01/25/20 00:00 PN: Objective Data - Labs CBC & Chem 7: 01/24/20 15:48 01/24/20 05:20
== END 2020-01-25 07:15 | disposition expired | DRG 189 ==
LOC: ANHED 23:29 → ANHIMU 01-24 00:28 → ANH3MED 01-29 12:42 → ANHIMU 01-29 12:42
PROVIDERS: Physician Assistant; Admitting Provider Internal Medicine; Emergency Provider Emergency Medicine; Visit Provider Family Medicine
DX: J96.02 Acute respiratory failure with hypercapnia (principal); R53.2 Functional quadriplegia; E66.2 Morbid (severe) obesity with alveolar hypoventilation; Z68.42 Body mass index [BMI] 45.0-49.9, adult; N17.9 Acute kidney failure, unspecified; F11.20 Opioid dependence, uncomplicated; B37.49 Other urogenital candidiasis; I69.354 Hemiplegia and hemiparesis following cerebral infarction affecting left non-dominant side; D46.20 Refractory anemia with excess of blasts, unspecified; I50.9 Heart failure, unspecified; E11.43 Type 2 diabetes mellitus with diabetic autonomic (poly)neuropathy; K31.84 Gastroparesis; Z79.4 Long term (current) use of insulin; I69.312 Visuospatial deficit and spatial neglect following cerebral infarction; I11.0 Hypertensive heart disease with heart failure; Z99.81 Dependence on supplemental oxygen; G89.4 Chronic pain syndrome; K21.9 Gastro-esophageal reflux disease without esophagitis; J96.11 Chronic respiratory failure with hypoxia
CPT/HCPCS: 36415; 36430; 36600; 71045; 80048; 81001; 82375; 82805; 83050; 83605; 83880; 85014; 85018; 85025; 85027; 85610; 85730; 86850; 86900; 86901; 86923; 87086; 87088; 92950; 93306; 94003; 94762; 96374; 96376; 99291; A9270; G0378; J0171; J1815; J1940; J7050; P9016